=== PATIENT | female | born 1975 | race Caucasian/White ===

== ENCOUNTER 2017-10-15 00:28 | Emergency (ER) | payer OTHER ==
--- NOTE | 2017-10-15 00:45 | PDOC ---
History of Present Illness - General Chief Complaint: Weakness Stated Complaint: WEAKNESS, LOW GRADE FEVER Time Seen by Provider: 10/15/17 00:45 History Source: Patient Exam Limitations: No Limitations - History of Present Illness Initial Comments: 10/15/17 00:51 This is a 42-year-old female who comes in complaining of some generalized weakness and not feeling well. Patient said she has had about 4 days of some sort of viral illness consisting of weakness fevers and feeling poorly. Patient said she hasn't really had much of anything to eat in the last 4 days and is not drinking enough fluids. Patient said she woke up this evening after going to bed with some abdominal pain and feeling very weak. Patient had a panic attack and came in here by the time I evaluated her symptoms had completely resolved she denied any abdominal pain was feeling better but still some generalized weakness. She denied any nausea vomiting or diarrhea. She denied any fevers in the last 24 hours she denied any headache, rashes, chest pain or shortness of breath. She denied any cough or congestion, sore throat or any other complaints PAST MEDICAL HISTORY: no significant history PAST SURGICAL HISTORY: no significant history FAMILY HISTORY: no pertinant history SOCIAL HISTORY: Pt lives with family and is employed. MEDICATIONS: reviewed ALLERGIES: As per nursing notes Review of Systems General: No fevers or chills, no weakness, no weight loss +generalized weakness HEENT: No change in vision. No sore throat,. No ear pain CardioVascular: No chest pain or shortness of breath Respiratory:No cough, or wheezing. Gastrointestinal: no nausea, vomitting, diarrhea or constipation, No rectal bleeding Genitourinary: No dysuria, hematuria, or frequency Musculoskeletal: No joint or muscle pain or swelling Neurologic: No headache, vertigo, dizziness or loss of consciousness Psychiatric: nor depression Skin: No rashes or easy bruising Endocrine: no increased thirst or abnormal weight change Allergic: no skin or latex allergy All other systems reviewed and normal Exam: General: Well-nourished well-developed individual, no acute distress HEENT: Throat: Normal, tonsils normal, no erythema or exudate Neck: Supple, no meningeal signs, no lymphadenopathy Eyes::Pupils equal reactive and round, extraocular motion intact Chest: Nontender to palpation Cardiac: S1-S2 normal, regular rate and rhythm, no murmurs rubs or gallops Respiratory: Lungs clear to auscultation bilateral Abdomen: Soft, nondistended, normal bowel sounds, nontender to palpation diffusely Extremities: Warm, dry, no cyanosis, clubbing, or edema Skin: No rashes Neuro: Alert and oriented x3, CN II - XII intact, nonfocal exam with normal strength, normal sensation, normal reflexes, normal gait, Psych: Normal mood and affect Assessment and plan: This is a 42-year-old female with recent viral illness of unknown etiology. Patient has not been eating or drinking and this evening had a panic attack after she felt very weak and had some abdominal pain that woke her up out of her sleep. By the time patient got here she was feeling much better the pain had resolved and she was asymptomatic. Patient's vitals were normal here in the emergency room. Patient discharged home and told to get something to eat have something to drink and try to go back to bed tonight. Past History - Past Medical History Allergies/Adverse Reactions: Allergies Allergy/AdvReac Type Severity Reaction Status Date / Time No Known Allergies Allergy Unverified 10/15/17 00:30 Home Medications: Ambulatory Orders Alprazolam [Xanax] 0.5 mg PO PRN PRN 10/15/17 Sertraline HCl [Zoloft] 25 mg PO Q2D 10/15/17 *DC/Admit/Observation/Transfer Diagnosis at time of Disposition: Viral illness - Discharge Dispostion Disposition: HOME Condition at time of disposition: Stable Admit: No - Referrals Referrals: ON STAFF,NOT [Primary Care Provider] - - Patient Instructions Additional Instructions: Tylenol or Motrin as needed for pain or fevers. Make sure you get something to drink this evening before going back to bed. And tomorrow make sure you eat at least 3 meals. Return to the emergency department immediately with ANY new, persistent or worsening symptoms. Continue any medications as previously prescribed by your physician. You should follow up with your primary doctor as soon as possible regarding today's emergency department visit. . Please make sure your doctor reviews the results of your emergency evaluation. Thank you for coming to the Emergency Department today for your care. It was a pleasure to see you today. Please note that your evaluation is INCOMPLETE until you follow-up with your doctor. - Post Discharge Activity
[2017-10-15 00:49] VITALS: BP 121/78; PULSE 70; TEMP 98.6; BMI 20.9
== END 2017-10-15 01:05 | disposition home or self-care (01) ==
LOC: FER 00:28
DX: B34.9 Viral infection, unspecified (principal)
CPT/HCPCS: 99282-25

== ENCOUNTER → 2023-09-01 | Day surgery (SDC) | payer OTHER | END | disposition home or self-care (01) | LOC: JRADUS-SUR 11:58 | PROVIDERS: ATTEND Physician Assistant | PROC: 0H9T3ZX Drainage of Right Breast, Percutaneous Approach, Diagnostic (ICD-10-PCS; principal; 2023-09-01) | DX: N60.01 Solitary cyst of right breast (principal) | CPT/HCPCS: 19000; 76942-TC; 87899 ==

== ENCOUNTER 2025-06-24 21:07 | Emergency (ER) | payer OTHER ==
[2025-06-24 21:13] VITALS: RESP 20; BMI 21.4
[2025-06-24] MEDS ORDERED: MAG HYDROX/AL HYDROX/SIMETH 30 ML UNIT-DOSE CUP ONE (21:53)
[2025-06-24] MEDS ORDERED: ONDANSETRON 4 MG/2 ML VIAL ONE (21:53)
[2025-06-24] MEDS: MAG HYDROX/AL HYDROX/SIMETH 30 ML UNIT-DOSE CUP PO ONE (22:10)
[2025-06-24] MEDS: ONDANSETRON 4 MG/2 ML VIAL IVPUSH ONE (22:10)
[2025-06-24 22:14] LABS: MCHC 33.8 g/dl (32.2-35.5); MEAN CELL VOLUME 92.4 fl (79.4-94.8); MEAN PLT VOLUME 11.1 fl (9.4-12.3); RDW 12.3 % (12.2-17.1)
[2025-06-24 22:37] LABS: GLUCOSE,RANDOM 90.0 mg/dL (74-106); TOT PROT 6.4 g/dl (6.4-8.2)
[2025-06-24 22:38] LABS: CO2 25.0 mmol/L (21-32)
[2025-06-24 22:40] LABS: ALK PHOS 68.0 U/L (40-150)
[2025-06-24 22:43] LABS: CREATININE 0.81 mg/dL (0.55-1.3); SGOT/AST 18.0 U/L (5-34); SGPT/ALT 13.0 U/L (0-55)
[2025-06-24 23:03] LABS: HCV DIAGNOSTIC IN-HOUSE W/RFLX NON-REACTIVE (NONREACTIVE)
[2025-06-24 23:04] LABS: HIV INTERPRETATION NEGATIVE (NEGATIVE)
[2025-06-24] MEDS: FAMOTIDINE 20 MG/50 ML IVPB 20 MG/50 ML MG IVPB ONE (23:13)
[2025-06-24 23:46] VITALS: BP 122/70; PULSE 68; TEMP 97.7
== END 2025-06-24 23:50 | disposition home or self-care (01) ==
LOC: JER 21:07
PROC: 3E033GC Introduction of Other Therapeutic Substance into Peripheral Vein, Percutaneous Approach (ICD-10-PCS; principal; 2025-06-24)
PROC: 3E033GC Introduction of Other Therapeutic Substance into Peripheral Vein, Percutaneous Approach (ICD-10-PCS; 2025-06-24)
DX: R20.8 Other disturbances of skin sensation (principal); R10.13 Epigastric pain
CPT/HCPCS: 36415; 71046-TC-FY; 76705-TC; 80053; 83690; 84484; 84703; 85025; 86803; 87389; 93005; 93010; 99285-25